=== PATIENT | female | born 1955 | race Two or more races ===

== ENCOUNTER 2023-10-25 19:38 | Emergency (ER) | payer OTHER, MEDICAID ==
[~2023-10-25] VITALS: Ht 144.8 cm; Wt 50.0 kg
[2023-10-25] MEDS ORDERED: CEPH500C PO (23:16)
[2023-10-25] MEDS ORDERED: MUPI2OIN2 EX (23:16)
[2023-10-25] MEDS: ACETAMINOPHEN 325 MG TAB PO ONE (23:25)
[2023-10-25 23:34] VITALS: BP 164/78; PULSE 55; RESP 17; TEMP 99; O2SAT 100
== END 2023-10-25 23:36 | disposition home or self-care (01) ==
LOC: ER 19:38
DX: S43.402A Unspecified sprain of left shoulder joint, initial encounter (principal); S53.402A Unspecified sprain of left elbow, initial encounter; S83.92XA Sprain of unspecified site of left knee, initial encounter; S93.602A Unspecified sprain of left foot, initial encounter; W18.09XA Striking against other object with subsequent fall, initial encounter; Y93.89 Activity, other specified; Y92.098 Other place in other non-institutional residence as the place of occurrence of the external cause; Y99.8 Other external cause status
CPT/HCPCS: 73030; 73080; 73562; 73630